=== PATIENT | male | born 1970 | race Caucasian/White ===

== ENCOUNTER 2017-11-17 04:41 | Emergency (ER) | payer OTHER ==
[2017-11-17] MEDS: CYCLOBENZAPRINE 10 MG TAB PO ×2 (07:08)
[2017-11-17] MEDS: KETOROLAC 60 MG/2 ML VIAL (J1885) IM ×2 (07:08)
== END 2017-11-17 08:00 | disposition home or self-care (01) ==
LOC: M ED 04:41
DX: M54.5 Low back pain (principal); E03.9 Hypothyroidism, unspecified; E78.00 Pure hypercholesterolemia, unspecified; K21.9 Gastro-esophageal reflux disease without esophagitis; Z79.899 Other long term (current) drug therapy
CPT/HCPCS: J1885